=== PATIENT | male | born 1980 | race Caucasian/White ===

== ENCOUNTER 2019-03-20 18:39 | Emergency (ER) | payer MEDICAID ==
[~2019-03-20] VITALS: Ht 162.6 cm; Wt 70.0 kg
[2019-03-20 18:44] VITALS: Ht 162.6 cm; Wt 70.0 kg
--- NOTE | 2019-03-20 20:48 | ERD ---
ER Documentation Chief Complaint Chief Complaint anxiety at home b/c "something feels off",+cp/sob, trouseau's sign noted HPI 38-year-old male presenting with complaints of palpitations and shortness of breath. He was eating dinner and afterwards starting feeling this way. He was feeling tightness in his chest as well. He states that for the past few nights, he has not been sleeping as he has been caring for his sick child. He has been going to work during the daytime. He thinks that has taken a toll on his body. Currently his is at bedside and he states he is feeling well and no longer has symptoms. Denies any medical history. ROS All systems reviewed and are negative except as per history of present illness. PMhx/Soc Medical and Surgical Hx: pt denies Medical Hx, pt denies Surgical Hx Hx Alcohol Use: Yes (socially) Hx Substance Use: No Hx Tobacco Use: No Smoking Status: Never smoker FmHx Family History: No diabetes, No coronary disease Physical Exam Vitals Vital Signs Date Temp Pulse Resp B/P (MAP) Pulse Ox O2 O2 Flow FiO2 Time Delivery Rate 03/20/19 87 17 110/79 99 Room Air 21:34 (89) 03/20/19 98.4 105 16 146/86 97 18:44 (106) Physical Exam Const: No acute distress Head: Atraumatic Eyes: Normal Conjunctiva ENT: Normal External Ears, Nose and Mouth. Neck: Full range of motion. No meningismus. Resp: Clear to auscultation bilaterally Cardio: Regular rate and rhythm, no murmurs Abd: Soft, non tender, non distended. Normal bowel sounds Skin: No petechiae or rashes Back: No midline or flank tenderness Ext: No cyanosis, or edema Neur: Awake and alert Psych: Normal Mood and Affect Result Diagram: 03/20/19210903/20/192109 Results 24 hrs Laboratory Tests Test 03/20/19 21:10 White Blood Count 10.3 10^3/ul Red Blood Count 5.51 10^6/ul Hemoglobin 16.0 g/dl Hematocrit 46.0 % Mean Corpuscular Volume 83.5 fl Mean Corpuscular Hemoglobin 29.0 pg Mean Corpuscular Hemoglobin Concent 34.8 g/dl Red Cell Distribution Width 12.5 % Platelet Count 284 10^3/UL Mean Platelet Volume 10.1 fl Immature Granulocytes % 0.300 % Neutrophils % 70.6 % Lymphocytes % 19.3 % Monocytes % 8.4 % Eosinophils % 0.8 % Basophils % 0.6 % Nucleated Red Blood Cells % 0.0 /100WBC Immature Granulocytes # 0.030 10^3/ul Neutrophils # 7.3 10^3/ul Lymphocytes # 2.0 10^3/ul Monocytes # 0.9 10^3/ul Eosinophils # 0.1 10^3/ul Basophils # 0.1 10^3/ul Nucleated Red Blood Cells # 0.0 10^3/ul Sodium Level 140 mmol/L Potassium Level 4.1 mmol/L Chloride Level 105 mmol/L Carbon Dioxide Level 27 mmol/L Anion Gap 8 Blood Urea Nitrogen 10 mg/dl Creatinine 0.91 mg/dl Est Glomerular Filtrat Rate mL/min > 60 mL/min Glucose Level 100 mg/dl Calcium Level 8.9 mg/dl Troponin I < 0.012 ng/ml Procedures/MDM EMERGENT LABS AND DIAGNOSTIC STUDIES: Lab Results above were reviewed and interpreted by me. CBC: no anemia or evidence of infection BMP: No e/o clinically significant electrolyte abnormality severe acidosis, alkalosis, renal failure, diabetic ketoacidosis Troponin within normal limits, not indicative of cardiac ischemia 12-lead EKG was interpreted by Jose Vail MD: Normal Sinus Rhythm Normal axis Normal intervals No acute ST or T wave changes suggestive of acute ischemia or STEMI. Initial Nursing notes reviewed. Previous Medical Records requested via the Electronic Health Record. EMERGENCY DEPARTMENT COURSE / MEDICAL DECISION MAKING: Patient is presenting with likely anxiety attack symptoms. I have a very low suspicion for ACS or any acute cardiopulmonary pathology. EKG did not show any arrhythmia or ischemia. Labs did not show any significant abnormalities. Patient feels much better and has been hemodynamically stable here. I feel he is stable for discharge with continued outpatient follow-up with his primary care doctor. Return precautions were given. Patient's blood pressure was elevated (>120/80) but appears stable without evidence of hypertensive emergency or urgency. The patient was counseled about the risks of hypertension and urged to pursue outpatient monitoring and therapy within a week with their primary care physician. Departure Diagnosis: Primary Impression: Palpitations Condition: Stable Patient Instructions: Palpitations Referrals: [facility] Usted se dennis hecho un examen mdico de control que le indica que no est en maría condicin que requiera tratamiento urgente en el Departamento de Emergencia. Un estudio ms profundo y el tratamiento de bauman condicin pueden esperar sin ningn riesgo hasta que usted sea atendida/o en el consultorio de bauman mdico o maría clnica. Es responsabilidad suya arreglar maría glenroy para el seguimiento del jame. MANEJO DE CONDICIONES NO URGENTES EN EL FUTURO 1) Si usted tiene un mdico de atencin primaria: Usted debera llamar a bauman mdico de atencin primaria antes de venir al departamento de emergencia. Despus de las horas de consultorio, bauman doctor o bauman asociado/a est disponible por telfono. El mdico o enfermero de pooja en el servicio telefnico puede asesorarle por carol medio para atender el problema, o jame contrario se puede programar maría glenroy. 2) Si usted no tiene un mdico de atencin primaria: Llame al mdico o clnica de referencia que aparece abajo elliot las horas de c onsultorio para hacer maría glenroy para que le vean. CLINICAS: [facility] [phone] [facility] [phone] [address] [facility] [phone] [address] [facility]. [place] [id number] [phone] [facility]. [place] [id number] [phone] [facility]. [phone] [place] March 20, 2019 20:48
[2019-03-20 22:39] VITALS: BP 108/77; PULSE 88; RESP 18
== END 2019-03-20 22:39 | disposition home or self-care (01) ==
LOC: E/R 18:39
DX: R00.2 Palpitations (principal); R40.2142 Coma scale, eyes open, spontaneous, at arrival to emergency department; R40.2362 Coma scale, best motor response, obeys commands, at arrival to emergency department; R40.2252 Coma scale, best verbal response, oriented, at arrival to emergency department
CPT/HCPCS: 36415; 80048; 84484; 85025; 93005; Z7502